=== PATIENT | male | born 1960 | race Asian ===

== ENCOUNTER 2019-01-21 19:26 | Emergency (ER) | payer OTHER ==
[~2019-01-21] VITALS: Ht 172.7 cm; Wt 90.7 kg
[2019-01-21 19:32] VITALS: BP_SYST 149
--- NOTE | 2019-01-21 19:34 | NUR ---
Patient to ER bed 6 to gown for evaluation. Side rails up. Report given to Liz GRAY.
--- NOTE | 2019-01-21 19:58 | NUR ---
patient AOx4 from home with c/o LLQ pain x 2 days. patient states he has not had a bowel movement in two days and is having problams passing gas. patient denies any diet and medication change. patient has not taken anything for is c/o. patient has slow to normal active bowel sounds to the LLQ and LRQ and hyperactive URQ and ULQ. patient denies pain with movement or lifting of legs in bed. no other complaint or injury at this time.
[2019-01-21] MEDS: KETOROLAC TROMETHAMINE 60 MG/2 ML VIAL IM ONE (20:43)
--- NOTE | 2019-01-21 21:00 | NUR ---
ER at bedside examining patient.
[2019-01-21 21:07] LABS: BILIRUBIN,URINE NEGATIVE (NEGATIVE); CLARITY/URINE CLEAR (CLEAR); COLOR,URINE YELLOW (YELLOW); GLUCOSE,URINE NEGATIVE (NEGATIVE); KETONES,URINE NEGATIVE (NEGATIVE); LEUKOCYTE ESTERASE ,URINE NEGATIVE (NEGATIVE); NITRITE, URINE NEGATIVE (NEGATIVE); PROTEIN URINE NEGATIVE (NEGATIVE); UROBILINOGEN,URINE 0.2 (0.2-1.0)
[2019-01-21 21:14] LABS: BLOOD, URINE TRACE (NEGATIVE)
[2019-01-21 21:15] LABS: BACTERIA,URINE None Seen /HPF (None Seen); MUCUS,URINE None Seen /LPF (None Seen); RBC,URINE 0-3 /HPF (0-3); WBC,URINE NONE SEEN /HPF (0-3)
[2019-01-21 21:29] LABS: BASOPHILS # (AUTO) 0.1 K/uL (0.0-0.2); BASOPHILS % (AUTO) 1.3 % (0.0-2.0); EOSINOPHILS # (AUTO) 0.4 K/uL (0.0-0.4); EOSINOPHILS % (AUTO) 3.8 % (0.0-4.0); HEMATOCRIT 43.8 % (36-54); LYMPHOCYTES # (AUTO) 1.8 K/uL (1.0-5.5); LYMPHOCYTES % (AUTO) 16.8 % (20.5-51.5); MEAN CORPUSCULAR HEMOGLOBIN 31 pg (27-31); MEAN CORPUSCULAR HGB CONC 34 % (32-36); MEAN CORPUSCULAR VOLUME 90 fL (79.0-98.0); MONOCYTES # (AUTO) 1.2 K/uL (0.0-1.0); MONOCYTES % (AUTO) 10.8 % (1.7-9.3); NEUTROPHILS # (AUTO) 7.3 K/uL (1.8-7.7); NEUTROPHILS % (AUTO) 67.3 % (40.0-70.0); PLATELET COUNT (AUTO) 298 K/uL (130-430); RED BLOOD CELL COUNT(AUTO) 4.85 MIL/uL (4.2-6.2); WHITE BLOOD COUNT (AUTO) 10.9 K/uL (4.8-10.8)
[2019-01-21] MEDS: NACL 0.9% 1,000 ML IV ONE (21:30)
[2019-01-21 21:39] LABS: CALCIUM 9.5 mg/dL (8.4-11.0); CREATININE 2.1 mg/dL (0.55-1.30)
--- NOTE | 2019-01-21 21:41 | NUR ---
patient returned to bed from RD in stable condition
[2019-01-21 21:50] LABS: TOTAL BILIRUBIN 0.6 mg/dL (0.0-1.0)
--- NOTE | 2019-01-21 22:00 | NUR ---
patient resting with spouse at bedside. no signs of complaints or distress at this time.
[2019-01-21 23:11] VITALS: BP_SYST 130
--- NOTE | 2019-01-21 23:11 | NUR ---
Patient given written and verbal discharge instructions and verbalizes understanding. ER MD discussed with patient the results and treatment provided. Patient in stable condition. ID arm band removed. IV catheter removed intact and dressing applied, no active bleeding. Rx of Motrin, Flomax, Zofran, Miralax given. Patient educated on pain management and to follow up with PMD. Pain Scale 0/10. Opportunity for questions provided and answered. Medication side effect fact sheet provided.
== END 2019-01-21 23:11 | disposition home or self-care (01) ==
LOC: SED 19:26
DX: N20.0 Calculus of kidney (principal)
CPT/HCPCS: 36415; 74176; 80053; 81000; 83690; 85025; 96372; 99284; J1885

== ENCOUNTER 2023-08-17 18:59 | Inpatient (IN) | payer OTHER ==
[~2023-08-17] VITALS: Ht 172.7 cm; Wt 83.9 kg
[2023-08-17 19:46] VITALS: BP_SYST 143; PULSE 92; RESP 20; TEMP 98.3; O2SAT 97
[2023-08-17 20:21] LABS: BASOPHILS # (AUTO) 0.1 K/uL (0.0-0.2); BASOPHILS % (AUTO) 0.9 % (0.0-2.0); EOSINOPHILS # (AUTO) 0.7 K/uL (0.0-0.4); EOSINOPHILS % (AUTO) 5.5 % (0.0-4.0); HEMATOCRIT 47.1 % (36-54); HEMOGLOBIN 16.1 g/dL (14.0-18.0); MEAN CORPUSCULAR HEMOGLOBIN 31 pg (27-31); MEAN CORPUSCULAR HGB CONC 34 % (32-36); MEAN CORPUSCULAR VOLUME 90 fL (79.0-98.0); MONOCYTES # (AUTO) 1.2 K/uL (0.0-1.0); MONOCYTES % (AUTO) 9.3 % (1.7-9.3); NEUTROPHILS # (AUTO) 8.8 K/uL (1.8-7.7); NEUTROPHILS % (AUTO) 68.3 % (40.0-70.0); PLATELET COUNT (AUTO) 300 K/uL (130-430); RED BLOOD CELL COUNT(AUTO) 5.22 MIL/uL (4.2-6.2); RED CELL DISTRIBUTION WIDTH 12.7 % (9.0-15.0); WHITE BLOOD COUNT (AUTO) 12.8 K/uL (4.8-10.8)
[2023-08-17 20:45] LABS: ALBUMIN 4.2 g/dL (3.4-4.8); BILIRUBIN,DIRECT 0.1 mg/dL (0.0-0.3); CALCIUM 10.2 mg/dL (8.4-11.0); CREATININE 1.57 mg/dL (0.55-1.30); TOTAL BILIRUBIN 0.3 mg/dL (0.0-1.0); TOTAL PROTEIN, SERUM 7.8 g/dL (6.4-8.3)
[2023-08-17] MEDS: NACL 0.9% 1,000 ML IV ONE (21:30)
[2023-08-17] MEDS: MORPHINE 4 MG INJ. 4 MG/ML VIAL IVP ONE (21:35)
[2023-08-17] MEDS ORDERED: FEBU40TA3 PO (22:04)
[2023-08-17] MEDS ORDERED: BENA40TA89 PO (22:04)
[2023-08-17] MEDS ORDERED: FELO10TA46 PO (22:04)
[2023-08-17] MEDS ORDERED: METF-379 PO (22:04)
[2023-08-17] MEDS ORDERED: SIMV-345 PO (22:09)
[2023-08-18] MEDS: cefTRIAXone 1 GM IVPB PREMIX 50 ML IV SCH
[2023-08-18] MEDS: NACL 0.9% 1,000 ML IV SCH (00:01)
[2023-08-18 00:25] LABS: BILIRUBIN,URINE NEGATIVE (NEGATIVE); BLOOD, URINE NEGATIVE (NEGATIVE); CLARITY/URINE CLEAR (CLEAR); COLOR,URINE YELLOW (YELLOW); GLUCOSE,URINE NEGATIVE (NEGATIVE); KETONES,URINE TRACE (NEGATIVE); LEUKOCYTE ESTERASE ,URINE NEGATIVE (NEGATIVE); NITRITE, URINE NEGATIVE (NEGATIVE); PH,URINE 6.5 (5.0-8.0); PROTEIN URINE NEGATIVE (NEGATIVE); UROBILINOGEN,URINE 0.2 (0.2-1.0)
[2023-08-18] MEDS ORDERED: hydrALAZINE HCL 20 MG/ML VIAL IVP ONE (01:00)
[2023-08-18] MEDS: hydrALAZINE HCL 20 MG/ML VIAL IVP ONE (01:20)
[2023-08-18 01:32] VITALS: BP_SYST 166; PULSE 65; RESP 18; TEMP 97.8; O2SAT 100
[2023-08-18] MEDS: MORPHINE 2 MG/ML INJ. SYRINGE IVP PRN (02:11)
[2023-08-18] MEDS ORDERED: MORPHINE 2 MG/ML INJ. SYRINGE IVP PRN (05:45)
[2023-08-18] MEDS ORDERED: ACETAMINOPHEN 325 MG TABLET PO PRN (05:45)
[2023-08-18] MEDS ORDERED: DOCUSATE SODIUM 100 MG CAPSULE PO PRN (05:45)
[2023-08-18] MEDS ORDERED: ONDANSETRON HCL 4 MG/2 ML VIAL IVP PRN (05:45)
[2023-08-18] MEDS ORDERED: MUPIROCIN 2% TOPICAL OINTMENT 22 GM NS PRN (05:45)
[2023-08-18] MEDS ORDERED: POTASSIUM CHLORIDE 20 MEQ TABLET.ER PO PRN (05:45)
[2023-08-18] MEDS ORDERED: MAGNESIUM SULFATE 50 ML IV PRN (05:45)
[2023-08-18 08:00] VITALS: O2SAT 99
[2023-08-18 08:08] VITALS: BP_SYST 126; PULSE 61; RESP 18; TEMP 98.4; O2SAT 100
[2023-08-18] MEDS ORDERED: DEXTROSE 50% JECT 50 ML DISP.SYRIN IVP PRN (09:15)
[2023-08-18] MEDS ORDERED: INSULIN LISPRO SLIDING SCALE 100 UNITS/ML, 3 ML VIAL (humaLOG) SUBCUT PRN (09:15)
[2023-08-18] MEDS: TAMSULOSIN HCL 0.4 MG CAP PO SCH (09:20)
[2023-08-18] MEDS: lisinopriL 20 MG TABLET PO SCH (09:22)
[2023-08-18 11:18] VITALS: BP_SYST 150; PULSE 55; RESP 16; TEMP 97.9; O2SAT 98
[2023-08-18 15:24] LABS: BASOPHILS # (AUTO) 0.1 K/uL (0.0-0.2); BASOPHILS % (AUTO) 0.9 % (0.0-2.0); EOSINOPHILS # (AUTO) 0.3 K/uL (0.0-0.4); EOSINOPHILS % (AUTO) 3.7 % (0.0-4.0); HEMATOCRIT 43.7 % (36-54); HEMOGLOBIN 14.9 g/dL (14.0-18.0); LYMPHOCYTES % (AUTO) 21.3 % (20.5-51.5); MEAN CORPUSCULAR HEMOGLOBIN 31 pg (27-31); MEAN CORPUSCULAR HGB CONC 34 % (32-36); MEAN CORPUSCULAR VOLUME 90 fL (79.0-98.0); MONOCYTES % (AUTO) 10.6 % (1.7-9.3); NEUTROPHILS # (AUTO) 5.9 K/uL (1.8-7.7); NEUTROPHILS % (AUTO) 63.5 % (40.0-70.0); PLATELET COUNT (AUTO) 272 K/uL (130-430); RED BLOOD CELL COUNT(AUTO) 4.85 MIL/uL (4.2-6.2); WHITE BLOOD COUNT (AUTO) 9.3 K/uL (4.8-10.8)
[2023-08-18 15:50] LABS: CALCIUM 8.7 mg/dL (8.4-11.0); CREATININE 1.77 mg/dL (0.55-1.30); POTASSIUM 3.6 mmol/L (3.5-5.1)
[2023-08-18 16:00] VITALS: BP_SYST 122; PULSE 68; RESP 18; TEMP 98.8; O2SAT 99
[2023-08-18] MEDS ORDERED: TAMS0.4C96 PO (16:08)
[2023-08-18] MEDS ORDERED: HYDR-3917 PO (16:09)
[2023-08-18] MEDS ORDERED: TAMSULOSIN HCL 0.4 MG CAP PO SCH (16:15)
[2023-08-18 16:37] VITALS: BP_SYST 126; PULSE 66; RESP 18; TEMP 98.4; O2SAT 99
[2023-08-18] MEDS ORDERED: SIMVASTATIN 40 MG TABLET PO SCH (21:00)
== END 2023-08-18 17:00 | disposition home or self-care (01) | DRG 694 ==
LOC: SED 18:59 → SMU 23:03
PROVIDERS: ADMIT Family Medicine; ATTEND Family Medicine
DX: N13.2 Hydronephrosis with renal and ureteral calculous obstruction (principal); K57.30 Diverticulosis of large intestine without perforation or abscess without bleeding; N17.0 Acute kidney failure with tubular necrosis; I10 Essential (primary) hypertension; I71.40 Abdominal aortic aneurysm, without rupture, unspecified; E11.9 Type 2 diabetes mellitus without complications; Z79.899 Other long term (current) drug therapy
CPT/HCPCS: 36415; 80048; 80076; 81001; 81003; 82948; 83037; 83690; 85025; 87040; 96361; 96374; 99285; J0360; J0696; J2270